=== PATIENT | male | born 1955 | race Caucasian/White ===

== ENCOUNTER 2017-07-09 23:40 | Emergency (ER) | payer OTHER ==
[~2017-07-09] VITALS: Ht 177.8 cm; Wt 94.4 kg
[2017-07-10 02:06] LABS: ADD MIUA? NO; BILIRUBIN NEGATIVE; BLOOD NEGATIVE; COLOR YELLOW ((YELLOW)); GLUCOSE (STRIP) NEGATIVE; KETONES 5; LEUKOCYTES NEGATIVE; NITRITE NEGATIVE; PROTEIN (STRIP) 30; SPECIFIC GRAVITY 1.033 (1.000-1.030); UCUL ADDED? NO
[2017-07-10] MEDS ORDERED: NAPROSYN500 MG PO (02:22)
[2017-07-10] MEDS ORDERED: NORCO 5/3251 TABLET PO (02:22)
[2017-07-10] MEDS ORDERED: LIDODERM 5% P1 PATCH TD (02:22)
[2017-07-10 03:08] VITALS: BP 130/88
== END 2017-07-10 02:45 | disposition home or self-care (01) ==
LOC: EME 23:40
PROVIDERS: Emergency Medicine
DX: S30.0XXA Contusion of lower back and pelvis, initial encounter (principal); W17.89XA Other fall from one level to another, initial encounter; Z72.0 Tobacco use
CPT/HCPCS: 72131; 81003; 99281; 99284